=== PATIENT | female | born 1945 | race Hispanic/Latino ===

== ENCOUNTER 2020-01-09 15:51 | Emergency (ER) | payer MEDICARE, OTHER ==
[~2020-01-09] VITALS: Ht 154.9 cm; Wt 63.5 kg
[~2020-01-09 15:51] MED LIST: AMLODIPINE BESY10 MG PO; ASPIRIN325 MG PO; ATORVASTATIN CA20 MG PO; GLIPIZIDE5 MG PO; HYDROCHLOROTHIA25 MG PO; LOSARTAN POTAS100 MG PO; METFORMIN HCL500 MG PO; NIACIN500 M2 PO; OMEPRAZOLE40 MG PO; OSCAL PO
--- NOTE | 2020-01-09 16:41 | Diagnostic Imaging Report ---
Left knee, 3 views INDICATION: ^pain ^[id number] ^[id number] Comparison: None available. Discussion: Multiple views of the right knee are negative for an acute displaced fracture or dislocation. Small suprapatellar joint effusion is noted. A flabella is noted posteriorly. Mild narrowing of the medial compartment and moderate narrowing of the patellofemoral compartment is noted. Enthesophyte is noted at the insertion of the quadriceps tendon. IMPRESSION: 1. Negative for acute displaced fracture or dislocation. 2. Suprapatellar joint effusion is noted. Findings could relate to soft tissue or ligamentous injury. 3. Moderate degenerative changes of the right knee. Signed by: Wali Rodas MD on 01/09/2020 4:38 PM
--- OUTSIDE RECORDS SUMMARY | 2020-01-09 16:49 | XMS REPORT | Continuity of Care Document ---
Author Author [employer] Organization [employer] Address Unknown Phone Unavailable Care Team Providers Care Security Tech Name Role Phone [employer] Unavailable Un available Problems Problem Status Onset Date Classification Date Reported Comments Source SCREENING Active 01/07/2019 [facility] ROUTINE Active 11/08/2017 [facility] R92.8-OTHER ABNORMAL AND INCONCLUSIVE FI Active 09/07/2016 [facility] DIARRHEA Active 10/29/2015 [facility] ACUTE GASTROENTERITITS HYPOKALEMIA, VOLU Active 10/29/2015 [facility] R92.8 OTHER ABNORMAL AND INCONCLUSIVE FI Active 09/23/2015 [facility] OSTEOPOROSIS Active 09/23/2015 [facility] SCREENING MAMMOGRAM Active 07/30/2015 [facility] ABN MAMMO Active 11/26/2014 [facility] Diabetes mellitus (disorder) A ctive [facility] ([facility] Acti ve Problem [facility] Hypertensive disorder, systemic arterial (disorder) Active [facility] Encounter for screening mammogram for ma lignant neoplasm of breast 01/24/2019 [facility] Pain in right shoulder Active Problem 03/08/2018 Elmer Reneeer Trigger finger, right middle finger Active Problem 09/2017 Elmer Reneeer Other chronic pain Active Problem 03/08/2018 Elmer Tucker Type 2 diabetes mellitus without complications Active Diagnosis 10/08/2019 Ronni Anderson MD, P A Screening for cardiovascular disorders Active Diagnosis 10/08/2019 Ronni Anderson MD, P A Hypertensive heart disease without heart failure Active Problem 10/08/2019 Ronni Anderson MD, P A Mixed hyperlipidemia Active Problem 10/08/2019 Ronni Anderson MD, PA Encounter for drug therapy Act paola Diagnosis 1 Elmer Tucker SCREEN MAMMOGRAM NEC Active [facility] ABL MAMMOGRAM NOS Active [facility] ENCNTR SCREEN MAMMOGRAM FOR MALIGNANT NE Active [facility] MAMMOGRAPHIC MICROCALCIFICATION FOUND ON Active [facility] 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 Active [facility] HYPOKALEMIA Active [facility] OTH ABN AND INCONCLUSIVE FINDINGS ON DX Active [facility] Medications Medication Details Route Status Patient Instructions Ordering Provider Order Date Source Potassium Chloride ER 1 tablet with food Orally Active 10 MEQ Orally Once a day Tayyan 12/30/2019 Ronni Anderson MD, PA Leflunomide 1 tablet Orally Active 20 MG Orally Once a day Edis 01/15/2018 Elmer Tucker Hydroxychloroquine Sulfate 1 t ablet with food or milk Orally Active 200 MG Orally twice a day Yous af 01/10/2018 Elmer Tucker Metronidazole Notes: (Same as: Flagyl) Take with food/ avoid alcohol Inactive 10/31/2015 [facility] Protonix Notes: Tablet should not be chewed or crushed. (Same as: Protonix) Inactive 10/30/2015 [facility] Streptococcus pneumoniae serotype 1 caps ular antigen diphtheria [id number] protein conjugate vaccine / Streptococcus pneumoniae serotype 14 capsular antigen diphtheria [id number] protein conjugate vaccine / Streptococcus pneumoniae serotype 18C capsular antigen d Notes: Lightly roll vial (DO NOT SHAKE) before administration. (Same as: Prevnar 13) Inactive 10/30/2015 [facility] Omeprazole 20 mg, Route: PO, D rug form: DRC, Daily, Dosing Weight 68.091, kg, Start date: 10/30/15 9:00:00 CDT, Duration: 30 day, Stop date: 11/28/15 9:00:00 CDT Inactive 10/30/2015 [facility] Losartan Notes: (Same as: Boni kim) Inactive 10/30/2015 [facility] Hydrochlorothiazide 12.5 MG Oral Capsule Notes: (Same as: Microzide) With food. Inactive 10/30/2015 [facility] Amlodipine Notes: (Same as: No rvasc) Inactive 10/30/2015 [facility] atorvastatin Notes: (Same As: Lipitor) Inactive 10/30/2015 [facility] Metformin hydrochloride 1000 MG Oral Tablet Notes: (Same as: Glucophage) Take with meal Inactive 10/30/2015 [facility] Metronidazole 500 MG Oral Tablet [Flagyl] 500 mg = 1 tab, PO, Q8H, X 7 day, # 21 tab, 0 Refill(s) Active 10/30/2015 [facility] Ciprofloxacin 500 MG Oral Tablet [Cipro] 500 mg = 1 tab, PO, Q12H, X 7 day, # 14 tab, 0 Refill(s) Active 10/30/2015 [facility] sodium chloride 0.9% 1000 ml INJ 1,000 mL 1,000 mL, Rate: 125 ml/hr, Infuse over: 8 hr, Route: IV, Dosing Weight 68.091 kg, Total Volume: 1,000, Start date: 10/30/15 7:28:00 CDT, Duration: 30 day, Stop date: 11/29/15 7:27:00 CDT Inactive 10/30/2015 [facility] Ciprofloxacin Notes: May inter fere w/enteral feedings - Take 1 hr before or 2 hrs after antacids, dairy pdt & minerals. On empty stomach. Inactive 10/30/2015 [facility] heparin Notes: porcine heparin Inactive 10/30/2015 [facility] Dextrose 50% Syringe 25 gm, 50 mL, Route: IVP, Drug Form: INJ, Dosing Weight 65, kg, PRN, PRN Blood Glucose Results, Start date: 10/29/15 21:12:00 CDT, Duration: 30 day, Stop date: 11/28/15 21:11:00 CDT No Longer Active 10/30/2015 [facility] Insulin, Aspart, Human Notes: Roll in palms of hands gently; Do not shake vigorously. (Same as: NovoLOG) "single patient use only" WASTE: F/P - Black; E - Municipal Trash Bin Stable for 28 days at room temperature. Expires in days from Date No Longer Active 10/30/2015 [facility] Glucagon 1 mg, Route: IM, Drug form: PDR/INJ, PRN, Dosing Weight 65, kg, PRN Blood Glucose Results, Start date: 10/29/15 21:12:00 CDT, Duration: 30 day, Stop date: 11/28/15 21:11:00 CDT No Longer Active 10/30/2015 [facility] Ondansetron Notes: (Same as: Christal veronica) MEDICATION WASTE Product Size: 4 mg Product Wasted: ___ mg No Longer Active 10/29/2015 [facility] losartan 100 mg oral tablet 10 0 mg = 1 tab, PO, Daily, 0 Refill(s) Active 10/29/2015 [facility] amLODIPine 10 mg oral tablet 1 0 mg = 1 tab, PO, Daily, 0 Refill(s) Active 10/29/2015 [facility] omeprazole 20 mg oral delayed release capsule 20 mg = 1 cap, PO, Daily, 0 Refill(s) Active 10/29/2015 [facility] hydrochlorothiazide 12.5 mg oral tablet 12.5 mg = 1 tab, PO, Daily, 0 Refill(s) No Longer Active 10/29/2015 [facility] Metformin hydrochloride 1000 MG Oral Tablet 1,000 mg = 1 tab, PO, BID, 0 Refill(s) No Longer Active 10/29/2015 [facility] Glipizide 10 MG Oral Tablet 10 mg = 1 tab, PO, Daily, 0 Refill(s) Active 10/29/2015 [facility] atorvastatin 20 mg oral tablet 20 mg = 1 tab, PO, Daily, 0 Refill(s) Active 10/29/2015 [facility] Dextrose 50% Syringe 25 gm, Ro derek: IVP, Dosing Weight 65, kg, ONCE, STAT, Start date: 10/29/15 17:07:00 CDT, Stop date: 10/29/15 17:07:00 CDT Inactive 10/29/2015 [facility] Sodium Chloride 0.154 MEQ/ML Injectable Solution 1,000 mL, 2,000 ml/hr, Infuse Over: 30 minutes, Route: IV, ONCE, Priority: STAT, Dosing Weight 65 kg, Start date: 10/29/15 15:02:00 CDT, Duration: 1 doses or times, Stop date: 10/29/15 15:02:00 CDT Inactive 10/29/2015 [facility] Metronidazole Notes: (Same as: Lissette) Avoid alcohol. Inactive 10/29/2015 [facility] Ciprofloxacin Notes: Do not re frigerate Inactive 10/29/2015 [facility] Tylenol 975 mg, Route: PO, Wallace g form: TAB, ONCE, Dosing Weight 65, kg, Priority: STAT, Start date: 10/29/15 14:21:00 CDT, Stop date: 10/29/15 14:21:00 CDT Inactive 10/29/2015 [facility] Sodium Chloride 0.154 MEQ/ML Injectable Solution 1,000 mL, 1,000 ml/hr, Infuse Over: 1 Hour, Route: IV, ONCE, Priority: STAT, Dosing Weight 65 kg, Start date: 10/29/15 14:21:00 CDT, Duration: 1 doses or times, Stop date: 10/29/15 14:21:00 CDT Inactive 10/29/2015 [facility] Saline Flush 0.9% Notes: (Same as: BD Posiflush) Inactive 10/29/2015 [facility] Hydrochlorothiazide 1 tablet i n the morning Orally Active 25 MG Orally Once a day Monica Anderson MD, PA Aspirin 1 tablet Orally Active 325 MG Orally Once a da y Monica Anderson MD, PA Omeprazole 1 capsule 30 minute s before morning meal Orally Active 20 MG Orally Once a day Monica Anderson MD, PA GlipiZIDE 1 tablet 30 minutes before breakfast Orally Active 10 MG Orally Once a day Monica Anderson MD, PA Amlodipine Besylate 1 tablet Orally Active 10 MG Orally Once a day Monica Anderson MD, PA Atorvastatin Calcium 1 tablet Orally Active 20 MG Orally Once a day Monica Anderson MD, PA Losartan Potassium 1 tablet Orally Active 100 MG Orally Once a day Monica Anderson MD, PA,Elmer Tucker Metformin HCl 1 tablet with a meal Orally Active 500 MG Orally Once a day Monica Anderson MD, PA GlipiZIDE 1 tablet Orally Active 10 MG Orally Once a day [facility] Bruno Tucker Aspirin 1 tablet Orally Active 325 MG Orally Once a y [facility] Bruno Tucker Hydrochlorothiazide 1 tablet i n the morning Orally Active 12.5 MG Orally Once a day [facility] Elmer Tucker Meloxicam 1 tablet with food Orally Active 15 MG Orally Once a day as needed [facility] Elmer Tucker Metformin HCl 1 tablet with me als Orally Active 1000 MG Orally once a day [facility] Elmer Tucker Niacin 1 tablet Orally Active 500 MG Orally Once a y [facility] Bruno Tucker Omeprazole 1 capsule Orally Active 20 MG Orally Once a day [facility] Elmer Tucker Atorvastatin Calcium 1/2 tablet Orally Active 20 MG Orally Once a day [facility] Elmer Tucker Os-Matt 1 tablet with a meal Orally Active 500-600 MG-UNIT Orally Once a day [facility] Elmer Tucker Niacin 1 tablet with food Orally Active 500 MG Orally Once a y Tayyan Ronni Tayyan, MD, PA Potassium Chloride ER 1 tablet with food Orally Active 10 MEQ Orally Once a day Monica Anderson MD, PA Potassium Chloride ER 1 tablet with food Orally Active 10 MEQ Orally Once a day Monica Anderson MD, PA Allergies, Adverse Reactions, Alerts Substance Category Reaction Severity Reaction type Status Date Reported Comments Source N.K.D.A. Adverse Reaction Info Not Available Adverse Reaction 10/03/2019 Ronni Anderson MD, PA No Known Medication Allergies Assertion Drug aller gy [facility] Immunizations Immunization Date Given Site Status Last Updated Comments Source pneumococcal 13-valent vaccine 10/30/2015 Right Deltoid completed Kangethe OPIJoselyn [place],[facility] Results Order Name Results Value Reference Range Date Interpretation Comments Source URINE AND STOOL Occult Bld Stl Negative (10/30/15 8:02 AM) Negative 10/30/2015 [facility] CHEM PANEL Lactic Acid Lvl 1.8 0.5 - 2.2 10/30/2015 [facility] CHEM PANEL Lactic Acid Lvl 2.1 0.5 - 2.2 10/30/2015 [facility] VIRAL - SEROLOGY Influ A Negative (10/29/15 2:19 PM) Negative 10/29/2015 [facility] VIRAL - SEROLOGY Influ B Negative (10/29/15 2:19 PM) Negative 10/29/2015 [facility] CARDIAC ENZYMES Troponin-I <0.02 0.00 - 0.40 10/29/2015 [facility] CARDIAC ENZYMES Total CK 63 12 - 191 10/29/2015 [facility] CARDIAC ENZYMES CK MB <0.5 0.5 - 3.6 10/29/2015 [facility] CARDIAC ENZYMES CK MB Index <0.8 0.0 - 2.5 10/29/2015 [facility] CHEM PANEL Procalcitonin Lvl 0.07 0.00 - 0.10 10/29/2015 [facility] CHEM PANEL Lactic Acid Lvl 2.4 0.5 - 2.2 10/29/2015 [facility] CHEM PANEL eGFR 48 10/29/2015 Result Comment: The eGFR is calculated using the CKD-EPI formula. In most young, healthy individuals the eGFR will be >90 mL/min/1.73m2. The eGFR declines with age. An eGFR of 60-89 may be normal in some populations, particularly the elderly, for whom the CKD-EPI formula has not been extensively validated. Use of the eGFR is not recommended in the following populations:

Individuals with unstable creatinine concentrations, including patients and those with serious co-morbid conditions.

Patients with extremes in muscle mass or diet.

The data above are obtained from the National Kidney Disease Education Program (NKDEP) which additionally recommends that when the eGFR is used in patients with extremes of body mass index for purposes of drug dosing, the eGFR should be multiplied by the estimated BMI. [facility] CHEM PANEL CO2 24 24 - 32 10/29/2015 [facility] CHEM PANEL Total Protein 7.9 6.4 - 8.4 10/29/2015 [facility] CHEM PANEL Chloride Lvl 104 95 - 109 10/29/2015 [facility] CHEM PANEL Potassium Lvl 3.4 3.5 - 5.1 10/29/2015 [facility] CHEM PANEL BUN 24 7 - 22 10/29/2015 [facility] CHEM PANEL Sodium Lvl 137 135 - 145 10/29/2015 [facility] CHEM PANEL Creatinine Lvl 1.15 0.50 - 1.40 10/29/2015 [facility] CHEM PANEL Calcium Lvl 8.5 8.5 - 10.5 10/29/2015 [facility] CHEM PANEL Glucose Lvl 104 70 - 99 10/29/2015 [facility] CHEM PANEL Bili Total 0.6 0.2 - 1.3 10/29/2015 [facility] CHEM PANEL Alk Phos 57 39 - 136 10/29/2015 [facility] CHEM PANEL ALT 17 0 - 65 10/29/2015 [facility] CHEM PANEL Albumin Lvl 3.9 3.5 - 5.0 10/29/2015 [facility] CHEM PANEL AST 11 0 - 37 10/29/2015 [facility] CHEM PANEL AGAP 12.4 10.0 - 20.0 10/29/2015 [facility] CHEM PANEL Globulin 4.0 2.0 - 4.0 10/29/2015 [facility] CHEM PANEL B/C Ratio 21 6 - 25 10/29/2015 [facility] CHEM PANEL A/G Ratio 1.0 0.7 - 1.6 10/29/2015 [facility] HEMATOLOGY PTT 29.1 22.9 - 35.8 10/29/2015 [facility] HEMATOLOGY INR 1.06 0.85 - 1.17 10/29/2015 [facility] HEMATOLOGY PT 14.1 12.0 - 14.7 10/29/2015 [facility] HEMATOLOGY Platelet 159 133 - 450 10/29/[address] [facility] MPV 9.0 7.4 - 10.4 10/29/2015 [facility] HEMATOLOGY MCV 83.4 80.0 - 98.0 10/29/[address] [facility] MCHC 34.6 32.0 - 36.0 10/29/[address] [facility] RDW 13.3 11.5 - 14.5 10/29/[address] [facility] MCH 28.9 27.0 - 31.0 10/29/2015 [facility] HEMATOLOGY Hct 37.5 36.0 - 48.0 10/29/[address] [facility] Hgb 13.0 12.0 - 16.0 10/29/[address] [facility] RBC 4.50 4.20 - 5.40 10/29/[address] [facility] WBC 10.9 3.7 - 10.4 10/29/2015 [facility] HEMATOLOGY Monocytes # 0.5 0.0 - 0.8 10/29/[address] [facility] Lymphocytes # 1.0 1.0 - 5.5 10/29/[address] [facility] Segs-Bands # 9.4 1.5 - 8.1 10/29/2015 [facility] HEMATOLOGY Basophils 0.4 0.0 - 1.0 10/29/2015 [facility] HEMATOLOGY Eosinophils 0.2 0.0 - 4.0 10/29/[address] [facility] Monocytes 4.5 2.0 - 12.0 10/29/[address] [facility] Lymphocytes 9.0 20.0 - 40.0 10/29/[address] [facility] Segs 85.9 45.0 - 75.0 10/29/2015 [facility] URINE AND STOOL UA Color Ltyellow 10/29/2015 [facility] URINE AND STOOL UA Urobilinogen <=1.0 mg/dL 0.1 - 1.0 10/29/2015 [facility] URINE AND STOOL UA Leuk Est Trace *ABN* (10/29/15 2:11 PM) Negative 10/29/2015 [facility] URINE AND STOOL UA WBC 2 0 - 5 10/29/2015 [facility] URINE AND STOOL UA RBC 1 0 - 2 10/29/2015 [facility] URINE AND STOOL UA Bili Negative *NA* (10/29/15 2:11 PM) Negative 10/29/2015 [facility] URINE AND STOOL UA Nitrite Negative (10/29/15 2:11 PM) Negative 10/29/2015 [facility] URINE AND STOOL UA Blood Negative (10/29/15 2:11 PM) Negative 10/29/2015 [facility] URINE AND STOOL UA Sq Epi Occasional /LPF Few /LPF 10/29/2015 [facility] URINE AND STOOL UA Ketones Negative mg/dL Negative mg/dL 10/29/2015 [facility] URINE AND STOOL UA pH 5.0 5.0 - 8.0 10/29/2015 [facility] URINE AND STOOL UA Protein Negative mg/dL Negative mg/dL 10/29/2015 [facility] URINE AND STOOL UA Glucose Negative mg/dL Negative mg/dL 10/29/[address] [facility] [address] URINE AND STOOL UA Turbidity Clear (10/29/15 2:11 PM) Clear 10/29/2015 [facility] URINE AND STOOL UA Spec Grav 1.017 <=1.030 10/29/2015 [facility] Pathology Reports No Data Provided for This Section Diagnostic Reports Report Value Date Source Breast Mammo Scrn MAURICIO w cheli incl CAD MA BILATERAL DIGITAL SCREENING MAMMOGRAM 3D/2D WITH CAD: 01/22/2019 CLINICAL: /Routine. Current study was evaluated with a Computer Aided Detection (CAD) system. COMPARISON:Comparison is made to exams dated: 12/19/2017 mammogram, 09/22/2016 mammogram, 09/08/2015 mammogram, 09/05/2014 mammogram, 09/03/2013 mammogram, and 08/29/2012 mammogram - [facility]. TECHNIQUE: Digital Breast Tomosynthesis was performed and utilized for Interpretation. Media Redefineda Version 1.3 was utilized for computer aided detection. FINDINGS: The tissue of both breasts is heterogeneously dense, which could obscure detection of small masses. There are benign scattered calcifications in both breasts. No significant masses, calcifications, or other findings are seen in either breast. There has been no significant interval change. IMPRESSION: BENIGN RECOMMENDATION:There is no mammographic evidence of malignancy. A 1 year screening mammogram is recommended.(01/23/2020) This exam was interpreted at [id number] for [facility]. Steve rodriguez/maylin:01/22/2019 09:30:29 [employer] Person(s): Aissatou Esparza, [facility] letter sent: BI-RADS 1/2 Mammogram BI-RADS: 2 Benign 01/22/2019 [facility] Breast Mammo Scrn MAURICIO incl CAD MA BILATERAL DIGITAL SCREENING MAMMOGRAM WITH CAD: 12/19/2017 CLINICAL: /Routine. Current study was evaluated with a Computer Aided Detection (CAD) system. COMPARISON:Comparison is made to exams dated: 09/22/2016 mammogram, 09/08/2015 mammogram, 09/05/2014 mammogram, 09/03/2013 mammogram, 08/29/2012 mammogram, and 08/13/2010 mammogram - [facility]. TECHNIQUE: Mammographic views were obtained using digital acquisition. Media Redefineda Version 1.3 was utilized for computer aided detection. FINDINGS: The tissue of both breasts is heterogeneously dense, which could obscure detection of small masses. There are benign scattered calcifications in both breasts. No significant masses, calcifications, or other findings are seen in either breast. There has been no significant interval change. IMPRESSION: BENIGN RECOMMENDATION:There is no mammographic evidence of malignancy. A 1 year screening mammogram is recommended.(12/20/2018) This exam was interpreted at [id number] for [facility]. SUMMARY: As the patient has dense breast parenchyma, this could obscure additional abnormalities. The patient would likely benefit from a supplemental screening test such as bilateral ultrasound. This should be discussed with the patient by the referring physician. Steve rodriguez/maylin:12/19/2017 09:13:22 [employer] Person(s): Olga Galindo, [facility] letter sent: BI-RADS 1/2 Dense Mammogram BI-RADS: 2 Benign 12/19/2017 [facility] Chest 2 views DX Exam: Two-vie w chest x-ray Reason for Exam: - H25.13 Age-related nuclear cataract, bilateral. Preop. Comparison Exam: None Discussion: Cardiomediastinal silhouette is within normal limits. Both hemidiaphragms well visualized. No pulmonary edema or pleural effusions. No focal lung consolidations. Trachea is midline. No acute bony abnormalities. Impression: 1. No acute cardiopulmonary abnormaliti es. 10/11/2016 [facility] [place] Breast Limited Uni US - BREAST LIMITED UNI US/L ULTRASOUND OF LEFT BREAST: 09/22/2016 CLINICAL: Probably benign finding - follow up 2 left breast masses. Comparison is made to exams dated: 10/07/2015 ultrasound, 09/22/2016 mammogram, 09/08/2015 mammogram, 12/01/2014 ultrasound, 09/05/2014 mammogram and 09/03/2013 mammogram - [facility]. Color flow and real-time ultrasound of the left breast were performed on the areas of interest. Wahl scale images of the real-time examination were reviewed. There are two stable probably benign round shaped hypoechoic masses with a circumscribed margin with posterior enhancement left breast at 10 and 12 o'clock that correlate with ultrasound. 10 o'clock mass measures 8 mm and the 12 o'clock mass measures 1 cm. There has been no significant interval change. IMPRESSION: PROBABLY BENIGN - FOLLOW-UP RECOMMENDED The stable left breast masses are probably benign and follow up is recommended. A follow-up bilateral diagnostic mammogram and an ultrasound in 12 months is recommended. The results were reviewed with the patient. The patient will be due for her annual exam at that time. Steve Cali M.D. jt/:09/22/2016 10:54:15 [employer] Person: Sadie Scott, [facility] This exam was dictated and interpreted by [id number] for [facility]. letter sent: Followup Ultrasound BI-RADS: 3 Probably benign 09/22/2016 [facility] Breast Mammo Diag MAURICIO incl CAD MA - BREAST MAMMO DIAG MAURICIO INCL CAD MA BILATERAL DIGITAL DIAGNOSTIC MAMMOGRAM WITH CAD: 09/22/2016 CLINICAL: Probably benign finding - follow up left breast masses. Current study was evaluated with a Computer Aided Detection (CAD) system. Comparison is made to exams dated: 09/08/2015 mammogram, 09/05/2014 mammogram, 09/03/2013 mammogram, 08/29/2012 mammogram, 08/30/2011 mammogram and 08/13/2010 mammogram - [facility]. The tissue of both breasts is heterogeneously dense, which could obscure detection of small masses. There are benign scattered calcifications in both breasts. No significant masses, calcifications, or other findings are seen in either breast. There has been no significant interval change. IMPRESSION: INCOMPLETE: NEEDS ADDITIONAL IMAGING EVALUATION There are no mammographic abnormalities seen in the left breast to correspond with the ultrasound findings at 10 and 12 o'clock, however ultrasound is recommended. The results were reviewed with the patient. SUMMARY: Ultrasound will be performed at this time; please see dedicated separate report. Ultrasound will also reevaluate prior probably benign findings. Steve banegast/penrad:09/22/2016 10:51:10 [employer] Person: Olga Galindo, [facility] This exam was dictated and interpreted by [id number] for [facility]. Mammogram BI-RADS: 0 Indeterminate 09/22/2016 [facility] ED Abdomen/Pelvis IV contrast only CT Patient Name: PALLAVI PUCKETT : 1945; Age: 70 years y/o Female MR: [id number] Study: ED Abdomen/Pelvis IV contrast only CT 10/29/2015 2:07 PM CDT Ordering Physician: Alonso Mooney Comparison: None Clinical Indication: Generalized abdominal pain; diarrhea Multiple computerized axial tomograms of the abdomen and pelvis were obtained after administration of IV contrast and without oral contrast. The lack of oral contrast limits diagnostic detail at the enteric tract and mesentery. 2-D sagittal and coronal reformation reconstruction images were obtained. Patchy reticular and groundglass opacity is noted at the right lower lobe which could represent volume loss and/or pneumonitis. Mild cardiomegaly. Thoracic and lumbar spondylosis are noted associated with degenerative arthropathy of the lower lumbar apophyseal joints. Reticular opacities at both lung bases are noted. Represent scarring or plate atelectasis. Single subcentimeter indeterminate splenic hypodensity is noted. Statistically, this likely represents a cyst but is too small to obtain an accurate attenuation number. Mild generalized diffuse fatty infiltration of the liver. Mild pelviectasis is noted bilaterally due to nonspecific distention of the urinary bladder. Well-circumscribed hypodensity measuring 15 mm is noted arising from the ventral cortex of the inferior pole of the left kidney demonstrating attenuation just greater than fluid (28 Hounsfield units) likely representing a mildly complex cyst. Liver, kidneys, spleen, pancreas and adrenal glands have an otherwise normal CT appearance. There is no adenopathy, abdominal mass or free fluid. No pneumoperitoneum. Moderate sized cystocele. Urinary bladder distention. Uterus surgically absent. The appendix is normal. Fluidic distention of distal and terminal ileum. Fluidic stool is noted at the right colon. Mild constipation at the rectum sigmoid colon, descending colon and splenic flexure. No pelvic mass, adenopathy or free fluid is noted. Degenerative disc disease L5-S1. IMPRESSION: 1. Nonspecific findings at the distal il eum, terminal ileum and right colon which could represent mild enterocolitis. 2. Moderate-sized cystocele associated w ith urinary bladder distention. There is mild renal pelviectasis noted bilaterally due to the urinary bladder distention. 3. Volume loss and/or pneumonitis at the right lower lobe. 4. Mild cardiomegaly. 5. Mildly complex cyst measuring 15 mm a rising from the ventral cortex of the inferior pole of left kidney. Correlation with outpatient nonemergent renal sonography for confirmation is suggested. 6. Mild diffuse fatty infiltration of th e liver. 7. Status post hysterectomy SL: [id number] 10/29/2015 [facility] Bone Density Scan BONE DENSITY : HISTORY: Osteoporosis screening. TECHNIQUE: Dual energy x-ray absorptiometry (DEXA) was done over the lumbar spine and left hip. FINDINGS: The total T-score over the lumbar spine is 0.5, consistent with normal bone density. The previous T-score on 09/03/2013 was -0.3, consistent with normal bone density. There has been a 8.3% increase in BMD since the last exam and a 16.1% increase in BMD since the baseline study on 08/13/2010. The global T-score over the left hip is -0.9, consistent with normal bone density. The previous T-score was -1.3, consistent with Stepanian. There has been a 6.2% increase in BMD since the last exam and a 13.4% increase in BMD since the baseline study. The focal T-score over the left femoral neck is -2.1, consistent with osteopenia. The BMD is 0.622 g/sq cm. The previous T-score over the left femoral neck was -2.8, consistent with osteoporosis, with a previous BMD of 0.545.. IMPRESSION: 1. Normal bone density of the lumbar spi ne. 2. Normal global bone density of the lef t hip. 3. Focal osteopenia of the left femoral neck. FOR YOUR INFORMATION: The World Health Organization has established that OSTEOPOROSIS occurs at -2.5 or more standard deviations (T-score) below peak bone mass (T-score on the Hologic report). OSTEOPENIA occurs at -1.0 to -2.5 standard deviations (T-score) below peak bone mass. [id number] 10/07/2015 [facility] Breast Complete Mauricio US - BREAS T COMPLETE MAURICIO US ULTRASOUND OF BOTH BREASTS AND BOTH AXILLA: 10/07/2015 CLINICAL: Dense. Comparison is made to exams dated: 09/08/2015 mammogram and 12/01/2014 ultrasound - [facility]. Ultrasound was performed over all four quadrants, retroareolar region, and axilla. Color flow and real-time ultrasound of both breasts and both axilla were performed. Wahl scale images of the real-time examination were reviewed. There is a 0.8 cm wider than tall oval nodule with a circumscribed margin in the left breast at 10 o'clock posterior depth 4 cm from the nipple. This oval nodule is anechoic. There also is a stable 1 cm wider than tall oval nodule with a circumscribed margin in the left breast at 12 o'clock middle depth 2 cm from the nipple. This oval nodule is hypoechoic. No abnormalities were seen sonographically in the right breast or either axilla. IMPRESSION: PROBABLY BENIGN - FOLLOW-UP RECOMMENDED The 0.8 cm wider than tall oval nodule in the left breast at 10 o'clock posterior depth is consistent with a fibroadenoma and is probably benign. The stable 1 cm wider than tall oval nodule in the left breast at 12 o'clock middle depth likely represents a fibroadenoma and is probably benign. A follow-up ultrasound in 6 months is recommended to demonstrate stability. Edgar Almaguer M.D. ap/penrad:10/07/2015 11:12:37 [employer]olin Rep[employer] Person: Sadie Scott, [facility] This exam was dictated and interpreted by [id number] for [facility] [place]. letter sent: Followup Ultrasound BI-RADS: 3 Probably benign 10/07/2015 [facility] Digital Mammo Screening Mauricio MA - DIGITAL MAMMO SCREENING MAURICIO MA BILATERAL DIGITAL SCREENING MAMMOGRAM WITH CAD: 09/08/2015 CLINICAL: Other Screening Mammogram. Current study was evaluated with a Computer Aided Detection (CAD) system. Comparison is made to exams dated: 09/05/2014 mammogram, 09/03/2013 mammogram, 08/29/2012 mammogram, 08/30/2011 mammogram, 08/13/2010 mammogram - [facility] and 07/29/2005. The tissue of both breasts is heterogeneously dense, which could obscure detection of small masses. There are benign scattered calcifications in both breasts. No significant masses, calcifications, or other findings are seen in either breast. There has been no significant interval change. IMPRESSION: BENIGN There is no mammographic evidence of malignancy. A 1 year screening mammogram is recommended. SUMMARY: As the patient has dense breast parenchyma, this could obscure additional abnormalities. The patient would likely benefit from a supplemental screening test such as bilateral ultrasound. This should be discussed with the patient by the referring physician. Steve rodriguez/penrad:09/08/2015 09:54:33 [employer]olin Repair Person: Cynthia Patel, [facility] This exam was dictated and interpreted by [id number] for [facility] [place]. letter sent: Normal [facility] Mammogram BI-RADS: 2 Benign 09/08/2015 [facility] Breast Complete Mauricio US - BREAS T COMPLETE MAURICIO US ULTRASOUND OF BOTH BREASTS AND BOTH AXILLA: 12/01/2014 CLINICAL: Densities abnormal mammogram, mammographic nodule/density. Comparison is made to exam dated: 09/05/2014 mammogram - [facility]. Color flow and real-time ultrasound of both breasts and both axilla were performed. Wahl scale images of the real-time examination were reviewed. For both breasts, all 4 quadrants, the retroareolar region and axilla are evaluated in this exam. There is a 9 mm wider than tall oval mass with a circumscribed margin in the left breast at 12 o'clock posterior depth 2 cm from the nipple. This oval mass is hypoechoic with posterior acoustic enhancement. This correlates with mammography findings. Color flow imaging demonstrates that there is no vascularity present. No abnormalities were seen sonographically in the right breast or either axilla. IMPRESSION: PROBABLY BENIGN - FOLLOW-UP RECOMMENDED The 9 mm wider than tall oval mass in the left breast resembles a fibroadenoma and is probably benign. A follow-up in 6 months is recommended. A follow-up left ultrasound in 6 months is recommended to demonstrate stability. Steve rodriguez/:12/01/2014 15:18:25 [employer]olin Repair Person: Sadie Scott, [facility] This exam was dictated and interpreted by [id number] for [facility] [place]. letter sent: Followup Ultrasound BI-RADS: 3 Probably benign 12/01/2014 [facility] Digital Mammo Screening Mauricio MA - DIGITAL MAMMO SCREENING MAURICIO MA BILATERAL DIGITAL SCREENING MAMMOGRAM WITH CAD: 09/05/2014 CLINICAL: Routine. Current study was evaluated with a Computer Aided Detection (CAD) system. Comparison is made to exams dated: 09/03/2013 mammogram, 08/29/2012 mammogram, 08/30/2011 mammogram, 08/13/2010 mammogram - [facility] and 07/29/2005. The tissue of both breasts is heterogeneously dense, which could obscure detection of small masses. Multiple benign appearing masses/densities are noted bilaterally which are not significantly changed in size possibly representing cysts. There are benign scattered calcifications in both breasts. No significant masses, calcifications, or other findings are seen in either breast. There has been no significant interval change. IMPRESSION: BENIGN Multiple benign appearing bilateral masses/densities are not significantly changed possibly representing cysts. Ultrasound can be performed for confirmation and to exclude underlying pathology. There is no mammographic evidence of malignancy. A 1 year screening mammogram is recommended. Steve Cali M.D. jt/:09/08/2014 07:36:31 [employer]olin Repair Person: Radha Hairston, [facility] This exam was dictated and interpreted by [id number] for [facility]. letter sent: Normal [facility] Mammogram BI-RADS: 2 Benign 09/05/2014 [facility] Consultation Notes No Data Provided for This Section Discharge Summaries No Data Provided for This Section History and Physicals No Data Provided for This Section Vital Signs Vital Sign Value Date Comments Source Weight 143 10/03/2019 Ronni Anderson MD, [place] Heart Rate 80 10/03/2019 Ronni Anderson MD, [place] Diastolic (mm Hg) 79 10/03/2019 Ronni Anderson MD, [place] Systolic (mm Hg) 132 10/03/2019 Ronni Anderson MD, [place] Weight 143 04/04/2019 Ronni Anderson MD, [place] Heart Rate 93 04/04/2019 Ronni Anderson MD, [place] Diastolic (mm Hg) 70 04/04/2019 Ronni Anderson MD, [place] Systolic (mm Hg) 141 04/04/2019 Ronni Anderson MD, [place] Weight 143 03/07/2019 Ronni Anderson MD, [place] Heart Rate 84 03/07/2019 Ronni Anderson MD, [place] Diastolic (mm Hg) 62 03/07/2019 Ronni Anderson MD, [place] Systolic (mm Hg) 118 03/07/2019 Ronni Anderson MD, [place] Weight 144 01/04/2018 Elmer Tucker Height 61 1 Elmer Tucker Temperature Oral (F) 97.8 F 01/04/2018 Elmer Tucker Heart Rate 72 01/04/2018 Elmer Tucker Diastolic (mm Hg) 66 01/04/2018 Elmer Tucker Systolic (mm Hg) 120 01/04/2018 Elmer Tucker Weight 145 12/21/2017 Elmer Tucker Height 61 0 12/21/2017 Elmer Tucker Temperature Oral (F) 97.6 F 12/21/2017 Elmer Tucker Heart Rate 84 12/21/2017 Elmer Tucker Diastolic (mm Hg) 64 12/21/2017 Elmer Tucker Systolic (mm Hg) 130 12/21/2017 Elmer Tucker Weight 146 03/29/2017 Elmer Tucker Height 61 1 05/30/2016 Elmer Tucker Temperature Oral (F) 98.0 F 03/29/2017 Elmer Tucker Heart Rate 72 03/29/2017 Elmer Tucker Diastolic (mm Hg) 76 03/29/2017 Elmer Tucker Systolic (mm Hg) 120 03/29/2017 Elmer Tucker Heart Rate 90 10/30/2015 [facility] Respitory Rate 18 10/30/2015 [facility] Systolic (mm Hg) 118 10/30/2015 [facility] Diastolic (mm Hg) 69 10/30/2015 [facility] Temperature Oral (F) 98.8 F 10/30/2015 [facility] Respitory Rate 18 10/30/2015 [facility] Systolic (mm Hg) 115 10/30/2015 [facility] Diastolic (mm Hg) 68 10/30/2015 [facility] Heart Rate 101 10/30/2015 [facility] Temperature Oral (F) 99.6 F 10/30/2015 [facility] Temperature Oral (F) 98.7 F 10/30/2015 [facility] Systolic (mm Hg) 106 10/30/2015 [facility] Diastolic (mm Hg) 56 10/30/2015 [facility] Heart Rate 116 10/30/2015 [facility] Respitory Rate 18 10/30/2015 [facility] Weight 68.091 10/30/2015 [facility] Height 154.94 cm 10/30/2015 [facility] BMI Calculated 28.36 10/30/2015 [facility] Weight 65 0 10/29/2015 [facility] Height 154.94 cm 10/29/2015 [facility] BMI Calculated 27.08 10/29/2015 [facility] Encounters Location Location Details Encounter Type Encounter Number Reason For Visit Attending Provider ADM Date DC Date Status Source [facility] Outpatient [id number] Abraham Rivera 09/05/2014 09/06/2014 [facility] Outpatient [id number] Abraham Rivera 12/01/2014 12/02/2014 [facility] Outpatient [id number] Abraham Rivera 09/08/2015 09/09/2015 [facility] Outpatient [id number] Abraham Rivera 10/07/2015 10/08/2015 [facility] Inpatient [id number] Rashad Simon 10/29/2015 10/30/2015 [facility] Outpatient [id number] Abraham Rivera 09/22/2016 09/23/2016 [facility] [place] [facility] [id number] Abraham Rivera 10/11/2016 10/12/2016 [facility] [place] [facility] [place] Out[facility] Di[facility] [id number] Abraham Rivera 11/08/2017 11/08/2017 [facility] [place] [facility] Outpatient [id number] Abraham Rivera 12/19/2017 12/20/2017 [facility] Outpatient [id number] Abraham Rivera 01/22/2019 01/23/2019 [facility] Procedures Procedure Code Date Perfomer Comments Source Hysterectomy [id number] [facility] [place],[facility] Tubal ligation [id number] [facility] Assessment and Plan Assessment and Plan Date Source Extracted from:Title: Clinical Document Author: Elia Luna MD Date: 10/30/15 PATIENT NAME:PALLAVI PUCKETT ATTENDING PHYSICIAN: ELIJAH HIGGINS DATE OF ADMISSION:10/29/2015 * * * REASON FOR ADMISSION: VOLUME DEPLETION, HYPOKALEMIA, DIARRHEA HISTORY OF PRESENT ILLNESS: 70yo woman presents with 2 month of watery diarrhea. She denies any recent travel history, denies drinking from unpurified water source, sick contacts, new medication or diet. She denies abdominal cramping associated with diarrhea and instead describes urgency as a primary source of discomfort. she denies hematochezia, melena, excessive flatulence, nausea or vomiting. She was prompted to come into the hospital today bc she felt feverish at home and reports temp of 103 and 102. she is afraid of taking trips or leaving the house for fear of fecal incontinence. PAST MEDICAL HISTORY: DM, HTN, HLD ALLERGIES: Allergies (1) Active Reaction NKDA None documented HOME MEDICATIONS:see MAR SOCIAL HISTORY: no alcohol, tobacco or illicit drug use REVIEW OF SYSTEMS: CONSTITUTIONAL: see hpi. +weakness worsening over past week HEENT: Eyes: No visual loss, blurred vision, double vision, sclera icterus, hearing loss, sneezing, congestion, runny nose or sore throat. SKIN: No rash or itching. CARDIOVASCULAR: No chest pain/chest discomfort, or palpitations. No PND or orthorpnea. RESPIRATORY: No shortness of breath, cough or increase sputum production GASTROINTESTINAL: + anorexia, diarrhea. No nausea, vomiting, or constipation. No abdominal pain or BPR GENITOURINARY: No dysuria, hematuria, discharge, or urinary frequency. NEUROLOGICAL: No headache, dizziness, syncope, paralysis, ataxia, numbness or tingling. No change in bowel or bladder control. MUSCULOSKELETAL: No muscle, back pain, joint pain or stiffness. HEMATOLOGIC: No anemia, bleeding or bruising. LYMPHATICS: No enlarged nodes. ENDOCRINOLOGIC: No reports of sweating, cold or heat intolerance. No polyuria or polydipsia. PHYSICAL EXAMINATION: Vitals Tmp(F) Pulse BP RR SpO2 FIO2 10/28 22:34 ---- --- ----- - - 97 --- 10/28 22:32 ---- 103 ----- - - --- --- 10/28 22:00 ---- 90 132/54 1 8 96 --- 10/28 21:15 98.2 88 124/59 1 8 96 --- 10/28 19:28 98.2 86 120/54 1 8 96 --- 24 Hr Tmax: 100.1F (37.83c) at 10/28 13: 34 Vital Signs are the last 5 in the past 48 hours. I&O Record In Out Bal 10/28 24hr Tot 1999 0 10/27 24hr Tot 0 0 0 GENERAL: in no apparent distress at this time. HEENT: EOMI NECK: supple, no jugular venous distention, no masses, no bruits CARDIOVASCULAR: regular rate and rhythm, s1 and s2 present, no murmurs, rubs or gallops LUNGS: clear to auscultation bilaterally, no wheezes, rales or rhonchi. GASTROINTESTINAL: soft, non-tender, non-distended positive bowel sounds in all four quadrants, no fluid wave appreciated EXTREMITIES: no clubbing, cyanosis or edema, pulses 2+ bilaterally and symmetric. NEUROLOGICAL: intact, no gross deficits noted SKIN: warm, no erythema, ecchymoses, purpura or petechiae, no jaundice, no diaphoresis LABORATORY DATA: Labs (Last four charted values) WBC H 10.9 (OCT 28) Hgb 13.0 (OCT 28) Hct 37.5 (OCT 28) Plt 159 (OCT 28) Na 137 (OCT 28) K L 3.4 (OCT 28) CO2 24 (OCT 28) Cl 104 (OCT 28) Cr 1.15 (OCT 28) BUN H 24 (OCT 28) Glucose Random H 104 (OCT 28) Ca 8.5 (OCT 28) PT 14.1 (OCT 28) INR 1.06 (OCT 28) PTT 29.1 (OCT 28) Troponin <0.02 (OCT 28) CK MB <0.5 (OCT 28) Total CK 63 (OCT 28) Radiology: Patient Name: PALLAVI PUCKETT : 1945; Age: 70 years y/o Female MR: [id number] Study: ED Abdomen/Pelvis IV contrast only CT 10/29/2015 2:07 PM CDT Ordering Physician: Alonso Mooney Comparison: None Clinical Indication: Generalized abdominal pain; diarrhea Multiple computerized axial tomograms of the abdomen and pelvis were obtained after administration of IV contrast and without oral contrast. The lack of oral contrast limits diagnostic detail at the enteric tract and mesentery. 2-D sagittal and coronal reformation reconstruction images were obtained. Patchy reticular and groundglass opacity is noted at the right lower lobe which could represent volume loss and/or pneumonitis. Mild cardiomegaly. Thoracic and lumbar spondylosis are noted associated with degenerative arthropathy of the lower lumbar apophyseal joints. Reticular opacities at both lung bases are noted. Represent scarring or plate atelectasis. Single subcentimeter indeterminate splenic hypodensity is noted. Statistically, this likely represents a cyst but is too small to obtain an accurate attenuation number. Mild generalized diffuse fatty infiltration of the liver. Mild pelviectasis is noted bilaterally due to nonspecific distention of the urinary bladder. Well-circumscribed hypodensity measuring 15 mm is noted arising from the ventral cortex of the inferior pole of the left kidney demonstrating attenuation just greater than fluid (28 Hounsfield units) likely representing a mildly complex cyst. Liver, kidneys, spleen, pancreas and adrenal glands have an otherwise normal CT appearance. There is no adenopathy, abdominal mass or free fluid. No pneumoperitoneum. Moderate sized cystocele. Urinary bladder distention. Uterus surgically absent. The appendix is normal. Fluidic distention of distal and terminal ileum. Fluidic stool is noted at the right colon. Mild constipation at the rectum sigmoid colon, descending colon and splenic flexure. No pelvic mass, adenopathy or free fluid is noted. Degenerative disc disease L5-S1. IMPRESSION: 1. Nonspecific findings at the distal il eum, terminal ileum and right colon which could represent mild enterocolitis. 2. Moderate-sized cystocele associated w ith urinary bladder distention. There is mild renal pelviectasis noted bilaterally due to the urinary bladder distention. 3. Volume loss and/or pneumonitis at the right lower lobe. 4. Mild cardiomegaly. 5. Mildly complex cyst measuring 15 mm a rising from the ventral cortex of the inferior pole of left kidney. Correlation with outpatient nonemergent renal sonography for confirmation is suggested. 6. Mild diffuse fatty infiltration of th e liver. 7. Status post hysterectomy Assessment&Plan: 70 year old woman with 2 months of watery diarrhea presenting with fatigue, hypokalemia and volume depletion. 1. DIARRHEA 2. LEUKOCYTOSIS 3. RLL infiltrate 4. FEVER 5. hypokalemia 1. send stool for O/P, consult GI for en terocolititis and recommendations. send CDiff toxin. 2. leukocytosis may be secondary to lung process, colitis etc. 3. clarify pulmonary picture. 4. fever has been absent since earlier i n the ED. tmax here has been 100.1 5. mild hypokalemia. will recheck bmp in morning. 10/30/2015 [facility] Plan of Care No Data Provided for This Section Social History Social History Date Source Social History TypeResponse Substance Abuse Use: None. IV drug use: No. Drug use interferes with work/home: No. Ready to change: No. Household substance abuse concerns: No. Alcohol Current, Type Wine. Frequency: 1-2 times per month. Previous treatment: None. Alcohol use interferes with work or home: No. Drinks more than intended: No. Others hurt by drinking: No. Ready to change: No. Household alcohol concerns: No. Smoking Status Never smoker; Ready to change: No; Concerns about tobacco use in household: No; Exposure to Tobacco Smoke None; Cigarette Smoking Last 365 Days No; Reg Smoking Cessation Counseling No entered on: 10/29/15 10/30/2015 ROSA Dean Social History TypeResponse Alcohol Current, Type Wine. Frequency: 1-2 times per month. Previous treatment: None. Alcohol use interferes with work or home: No. Drinks more than intended: No. Others hurt by drinking: No. Ready to change: No. Household alcohol concerns: No. Substance Abuse Use: None. IV drug use: No. Drug use interferes with work/home: No. Ready to change: No. Household substance abuse concerns: No. Smoking Status Never smoker; Ready to change: No; Concerns about tobacco use in household: No; Exposure to Tobacco Smoke None; Cigarette Smoking Last 365 Days No; Reg Smoking Cessation Counseling No entered on: 10/29/15 10/30/2015 [facility] Family History No Data Provided for This Section Advance Directives No Data Provided for This Section Functional Status No Data Provided for This Section
--- OUTSIDE RECORDS SUMMARY | 2020-01-09 16:49 | XMS REPORT | Continuity of Care Document ---
Author Author [facility] t Organization [facility] Address [address] [place] [address] Phone Unavailable Care Team Providers Care Early Childhood Services Coordinator Name Role Phone MARKMERYLJOSÉ KIRK Attphys Unavailable Anu Rivera Attphys Rashad Montes Attphys Rashad Montes Admphys Problems Condition Name Condition Details Condition Category Status Onset Date Resolution Date Last Treatment Date Treating Clinician Comments Source SCREENING SCRE ENING Active 01/07/2019 [facility] Diagnosis Active 2019-01-07 00:00:00 2019-01-22 09:12:00 Graciela Mejia ROUTINE ROUT INE Active 11/08/2017 [facility] Diagnosis Active 2017-11-08 00:00:00 2017-12-19 08:46:00 [facility] R92.8-OTHER ABNORMAL AND INCONCLUSIVE FI R92.8-OTHER ABNORMAL AND INCONCLUSIVE FI Active 09/07/2016 [facility] Diagnosis A ctive 2016-09-07 00:00:00 2016-09-22 09:38:00 M cheyenne Mejia DIARRHEA DIAR PAWAN Active 10/29/2015 [facility] Diagnosis Active 2015-10-29 00:00:00 2015-10-29 14:20:00 [facility] ACUTE GASTROENTERITITS HYPOKALEMIA, VOLU ACUTE GASTROENTERITITS HYPOKALEMIA, VOLU Active 10/29/2015 [facility] Diagnosis Active 2015-10-29 00:00:00 2015-11-10 12:19:00 [facility] R92.8 OTHER ABNORMAL AND INCONCLUSIVE FI R92.8 OTHER ABNORMAL AND INCONCLUSIVE FI Active 09/23/2015 [facility] Diagnosis A ctive 2015-09-23 00:00:00 2015-10-07 10:30:00 M cheyenne Mejia OSTEOPOROSIS OSTE OPOROSIS Active 09/23/2015 [facility] Diagnosis Active 2015-09-23 00:00:00 2015-11-08 15:34:00 [facility] SCREENING MAMMOGRAM SCRE ENING MAMMOGRAM Active 07/30/2015 [facility] Diagnosis Active 2015-07-30 00:00:00 2015-09-08 09:15:00 Graciela [place] ABN MAMMO ABN MAMMO Active 11/26/2014 [facility] Diagnosis Active 2014-11-26 00:00:00 2014-12-01 14:50:00 [facility] Encounter for screening mammogram for malignant neopla sm of breast Encounter for screening mammogram for malignant neoplasm of breast 01/24/2019 [facility] Problem 2019-01-24 23:03:29 [facility] Diabetes mellitus (disorder) D iabetes mellitus (disorder) Active Problem 01/24/2019 [facility] Active 2019-01-24 23:03:29 [facility] Hyperlipidemia (disorder) Hype rlipidemia (disorder) Active Problem 01/24/2019 [facility] Active 2019-01-24 23:03:29 [facility] Hypertensive disorder, systemic arterial (disorder) Hypertensive disorder, systemic arterial (disorder) Active Problem 01/24/2019 [facility] Problem Active 2019-01-24 23:03:29 [facility] Pain in right shoulder Pain in right shoulder Active Problem 03/08/2018 Elmer Tucker Problem Active 2018-03-08 03 :47:30 [facility] Trigger finger, right middle finger Trigger finger, right middle finger Active Problem 03/08/2018 Elmer Tucker Problem Active 2018-03-08 03:47:30 [facility] Other chronic pain Othe r chronic pain Active Problem 03/08/2018 Elmer Tucker Problem Active 2018-03-08 03:47:30 [facility] Type 2 diabetes mellitus without complications Type 2 diabetes mellitus without complications Active Diagnosis 10/08/2019 Ronni Anderson MD, [place] Diagnosis Active 2019-10-08 04:10:15 [facility] Screening for cardiovascular disorders Screening for cardiovascular disorders Active Diagnosis 10/08/2019 Ronni Anderson MD, PA Diagnosis Active 2019-10-08 04:10:15 [facility] Hypertensive heart disease without heart failure Hypertensive heart disease without heart failure Active Problem 10/08/2019 Ronni Anderson MD, [place] Problem Active 2019-10-08 04:10:15 [facility] Mixed hyperlipidemia Mixe d hyperlipidemia Active Problem 10/08/2019 Ronni Anderson MD, [place] Problem Active 2019-10-08 04 :10:15 [facility] Encounter for drug therapy Enc ounter for drug therapy Active Diagnosis 01/06/2018 Elmer Reneeer Diagnosis Active 2018-01-06 02:47:48 [facility] SCREEN MAMMOGRAM NEC SCRE EN MAMMOGRAM NEC Active [facility] Diagnosis Active 2014-09-05 09:52:00 La morial [place] ABL MAMMOGRAM NOS ABL MAMMOGRAM NOS Active [facility] Diagnosis Active 2014-12-01 14:50:00 [facility] ENCNTR SCREEN MAMMOGRAM FOR MALIGNANT NE ENCNTR SCREEN MAMMOGRAM FOR MALIGNANT NE Active [facility] Diagnosis Active 2019-01-22 09:12:00 [facility] MAMMOGRAPHIC MICROCALCIFICATION FOUND ON MAMMOGRAPHIC MICROCALCIFICATION FOUND ON Active [facility] Diagnosis Active 2015-10-07 10:30:00 [facility] 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 Active [facility] Diagnosis Active 2017-12-19 08:45:00 [facility] HYPOKALEMIA HYPO KALEMIA Active [facility] Diagnosis Active 2015-11-10 12:19:00 [facility] [place] OTH ABN AND INCONCLUSIVE FINDINGS ON DX OTH ABN AND INCONCLUSIVE FINDINGS ON DX Active [facility] Diagnosis Active 2016-09-22 09:38:00 [facility] Allergies, Adverse Reactions, Alerts Allergy Name Allergy Type Status Severity Reaction(s) Onset Date Inacti ve Date Treating Clinician Comments Source N.K.D.A. N.K.D.A. Active Info Not Available 2019-10-03 00:00:00 [facility] No Known Medication Allergies No Known Medication Allergies Active [facility] Social History Social Habit Start Date Stop Date Quantity Comments Source Social History 2015-10-30 03:38:04 2015-10-30 03:38:04 [facility] Medications Ordered Medication Name Filled Medication Name Start Date Stop Da te Current Medication? Ordering Clinician Indication Dosage Frequency Signature (SIG) Comments Components Source Potassium Chloride ER 2019-12-30 00:00:00 Yes Ronni Guptaw an Tayyan 1 tablet with food [facility] Hydrochlorothiazide 2019-10-08 04:10:15 Yes Ronni Marwan Tayyan 1 tablet in the morning [facility] Aspirin 2019-10-08 04:10:15 Yes Ronni Brown Tayyan 1 tablet [facility] Omeprazole 2019-10-08 04:10:15 Yes Ronni Kellyyan 1 capsule 30 minutes before morning meal [facility] Her negro GlipiZIDE 2019-10-08 04:10:15 Yes Ronni Kellyyan 1 tablet 30 minutes before breakfast [facility] Amlodipine Besylate 2019-10-08 04:10:15 Yes Ronni Brown Tayyan 1 tablet [facility] Atorvastatin Calcium 2019-10-08 04:10:15 Yes Ronni kaur Tayyan 1 tablet [facility] Losartan Potassium 2019-10-08 04:10:15 Yes Ronni Brown Tayyan 1 tablet [facility] Metformin HCl 2019-10-08 04:10:15 Yes Ronni Eason n 1 tablet with a meal [facility] Potassium Chloride ER 2019-03-22 05:10:40 Yes Ronni tavarez Tayyan 1 tablet with food [facility] Niacin 2019-03-12 05:10:12 Yes Ronni Kellyyan 1 tablet with food [facility] Potassium Chloride ER 2019-03-12 05:10:12 Yes Ronni tavarez Tayyan 1 tablet with food [facility] Leflunomide 2018-01-15 00:00:00 Yes Wajeeha Edis 1 tablet [facility] Hydroxychloroquine Sulfate 2018-01-10 00:00:00 Yes Wajee marte Edis 1 tablet with food or milk [facility] GlipiZIDE 2018-01-06 02:47:48 Yes Wajeeha Edis 1 tablet [facility] Aspirin 2018-01-06 02:47:48 Yes Wajeeha Edis 1 tablet [facility] Hydrochlorothiazide 2018-01-06 02:47:48 Yes Wajeeha Yous af 1 tablet in the morning [facility] Meloxicam 2018-01-06 02:47:48 Yes Wajeeha Edis 1 tablet with food [facility] Metformin HCl 2018-01-06 02:47:48 Yes Wajeeha Edis 1 tablet with meals [facility] Niacin 2018-01-06 02:47:48 Yes Wajeeha Edis 1 t ablet [facility] Omeprazole 2018-01-06 02:47:48 Yes Wajeeha Edis 1 capsule Graciela Mejia Atorvastatin Calcium 2018-01-06 02:47:48 Yes Chinyessigretchenbenny You saf 1/2 tablet Graciela Mejia Os-Matt 2018-01-06 02:47:48 Yes Wajeeha Edis 1 tablet with a meal Graciela Mejia Metronidazole 2015-10-31 04:00:00 No Notes: (Same as: Flagyl) Take with food/ avoid alcohol Graciela Foy n Protonix 2015-10-30 21:30:00 No Notes: Tablet should not be chewed or crushed. (Same as: Protonix) Graciela Mejia Streptococcus pneumoniae serotype 1 caps ular antigen diphtheria [id number] protein conjugate vaccine / Streptococcus pneumoniae serotype 14 capsular antigen diphtheria [id number] protein conjugate vaccine / Streptococcus pneumoniae serotype 18C capsular antigen d 2015-10-30 14:00:00 No Notes: Lightly roll vial (DO NOT SHAKE) before administration. (Same as: Prevnar 13) [facility] Omeprazole 2015-10-30 14:00:00 No 20 mg, Route: PO, Drug form: DRC, Daily, Dosing Weight 68.091, kg, Start date: 10/30/15 9:00:00 CDT, Duration: 30 day, Stop date: 11/28/15 9:00:00 CDT [facility] Losartan 2015-10-30 14:00:00 No Notes: (Arian galindo as: Dulce) [facility] Hydrochlorothiazide 12.5 MG Oral Capsule 2015-10-30 14:00:00 No Notes: (Same as: Microzide) With food. [facility] Amlodipine 2015-10-30 14:00:00 No Notes: (S kimber as: Norvasc) [facility] atorvastatin 2015-10-30 14:00:00 No Notes: (Same As: Lipitor) [facility] Metformin hydrochloride 1000 MG Oral Tablet 2015-10-30 13:00:00 No Notes: (Same as: Glucophage) Take with meal [facility] Metronidazole 500 MG Oral Tablet [Flagyl] 2015-10-30 12:30:00 Yes 500 mg = 1 tab, PO, Q8H, X 7 day, # 21 tab, 0 Refill(s) [facility] Ciprofloxacin 500 MG Oral Tablet [Cipro] 2015-10-30 12:30:00 Yes 500 mg = 1 tab, PO, Q12H, X 7 day, # 14 tab, 0 Refill(s) [facility] sodium chloride 0.9% 1000 ml INJ 1,000 mL 2015-10-30 12:28:00 No 1,000 mL, Rate: 125 ml/hr, Infuse over: 8 hr, Route: IV, Dosing Weight 68.091 kg, Total Volume: 1,000, Start date: 10/30/15 7:28:00 CDT, Duration: 30 day, Stop date: 11/29/15 7:27:00 CDT [facility] Ciprofloxacin 2015-10-30 11:00:00 No Notes: May interfere w/enteral feedings - Take 1 hr before or 2 hrs after antacids, dairy pdt & minerals. On empty stomach. [facility] heparin 2015-10-30 05:00:00 No Notes: porci ne heparin [facility] Dextrose 50% Syringe 2015-10-30 02:12:00 No 25 gm, 50 mL, Route: IVP, Drug Form: INJ, Dosing Weight 65, kg, PRN, PRN Blood Glucose Results, Start date: 10/29/15 21:12:00 CDT, Duration: 30 day, Stop date: 11/28/15 21:11:00 CDT [facility] Insulin, Aspart, Human 2015-10-30 02:12:00 No Notes: Roll in palms of hands gently; Do not shake vigorously. (Same as: NovoLOG) "single patient use only" WASTE: F/P - Black; E - Municipal Trash Bin Stable for 28 days at room temperature. Expires in days from Date [facility] Glucagon 2015-10-30 02:12:00 No 1 mg, Route: IM, Drug form: PDR/INJ, PRN, Dosing Weight 65, kg, PRN Blood Glucose Results, Start date: 10/29/15 21:12:00 CDT, Duration: 30 day, Stop date: 11/28/15 21:11:00 CDT [facility] Ondansetron 2015-10-29 23:16:00 No Notes: (Same as: Joshua) MEDICATION WASTE Product Size: 4 mg Product Wasted: ___ mg Graciela [place] losartan 100 mg oral tablet 2015-10-29 22:35:00 Yes 100 mg = 1 tab, PO, Daily, 0 Refill(s) Graciela Cardosoann amLODIPine 10 mg oral tablet 2015-10-29 22:35:00 Yes 10 mg = 1 tab, PO, Daily, 0 Refill(s) Graciela Mejia omeprazole 20 mg oral delayed release capsule 2015-10-29 22:35:0 0 Yes 20 mg = 1 cap, PO, Daily, 0 Refill(s) Graciela Mejia hydrochlorothiazide 12.5 mg oral tablet 2015-10-29 22:35:00 No 12.5 mg = 1 tab, PO, Daily, 0 Refill(s) Reinaldo mendoza [address] Metformin hydrochloride 1000 MG Oral Tablet 2015-10-29 22:35:00 No 1,000 mg = 1 tab, PO, BID, 0 Refill(s) Bonnie cheyenne Roberto Glipizide 10 MG Oral Tablet 2015-10-29 22:35:00 Yes 10 mg = 1 tab, PO, Daily, 0 Refill(s) Graciela [facility] atorvastatin 20 mg oral tablet 2015-10-29 22:35:00 Yes 20 mg = 1 tab, PO, Daily, 0 Refill(s) Graciela Her negro Dextrose 50% Syringe 2015-10-29 22:07:00 No 25 gm, Route: IVP, Dosing Weight 65, kg, ONCE, STAT, Start date: 10/29/15 17:07:00 CDT, Stop date: 10/29/15 17:07:00 CDT [facility] Sodium Chloride 0.154 MEQ/ML Injectable Solution 2015-10-29 20:0 2:00 No 1,000 mL, 2,000 ml/hr, Infus e Over: 30 minutes, Route: IV, ONCE, Priority: STAT, Dosing Weight 65 kg, Start date: 10/29/15 15:02:00 CDT, Duration: 1 doses or times, Stop date: 10/29/15 15:02:00 CDT [facility] Metronidazole 2015-10-29 19:55:00 No Notes: (Same as: Lissette) Avoid alcohol. Graciela Mejia Ciprofloxacin 2015-10-29 19:55:00 No Notes: Do not refrigerate Graciela Mejia Tylenol 2015-10-29 19:21:00 No 975 mg, Route: PO, Drug form: TAB, ONCE, Dosing Weight 65, kg, Priority: STAT, Start date: 10/29/15 14:21:00 CDT, Stop date: 10/29/15 14:21:00 CDT Christian Mejia Sodium Chloride 0.154 MEQ/ML Injectable Solution 2015-10-29 19:2 1:00 No 1,000 mL, 1,000 ml/hr, Infus e Over: 1 Hour, Route: IV, ONCE, Priority: STAT, Dosing Weight 65 kg, Start date: 10/29/15 14:21:00 CDT, Duration: 1 doses or times, Stop date: 10/29/15 14:21:00 CDT [facility] [place] Saline Flush 0.9% 2015-10-29 19:07:00 No Notes: (Same as: BD Posiflush) [facility] Vital Signs Vital Name Observation Time Observation Value Comments Source Weight 2019-10-03 18:45:00 [facility] [place] Heart Rate 2019-10-03 18:45:00 [facility] [place] Diastolic (mm Hg) 2019-10-03 18:45:00 Mem o[facility] [place] Systolic (mm Hg) 2019-10-03 18:45:00 Farhat Cardosoann Weight 2019-04-04 20:15:00 [facility] [place] Heart Rate 2019-04-04 20:15:00 [facility] [place] Diastolic (mm Hg) 2019-04-04 20:15:00 Mem [facility] Systolic (mm Hg) 2019-04-04 20:15:00 Farhat cruz [facility] Weight 2019-03-07 19:00:00 [facility] Heart Rate 2019-03-07 19:00:00 [facility] Diastolic (mm Hg) 2019-03-07 19:00:00 [facility] Systolic (mm Hg) 2019-03-07 19:00:00 Farhat cruz [place] Weight 2018-01-04 15:15:00 [facility] [place] Height 2018-01-04 15:15:00 [facility] [place] Temperature Oral (F) 2018-01-04 15:15:00 97.8 F [facility] [place] Heart Rate 2018-01-04 15:15:00 [facility] Diastolic (mm Hg) 2018-01-04 15:15:00 Mem [facility] [place] Systolic (mm Hg) 2018-01-04 15:15:00 Farhat rial [place] Weight 2017-12-21 14:00:00 [facility] [place] Height 2017-12-21 14:00:00 [facility] [place] Temperature Oral (F) 2017-12-21 14:00:00 97.6 F [facility] [place] Heart Rate 2017-12-21 14:00:00 [facility] Diastolic (mm Hg) 2017-12-21 14:00:00 Mem [facility] [place] Systolic (mm Hg) 2017-12-21 14:00:00 Farhat rial [place] Weight 2017-03-29 15:30:00 [facility] Height 2017-03-29 15:30:00 [facility] [place] Temperature Oral (F) 2017-03-29 15:30:00 98.0 F [facility] Heart Rate 2017-03-29 15:30:00 [facility] [place] Diastolic (mm Hg) 2017-03-29 15:30:00 Mem [facility] [place] Systolic (mm Hg) 2017-03-29 15:30:00 Farhat rial [place] Heart Rate 2015-10-30 17:00:00 [facility] Respitory Rate 2015-10-30 17:00:00 [facility] Systolic (mm Hg) 2015-10-30 17:00:00 Farhat rial Roberto Diastolic (mm Hg) 2015-10-30 17:00:00 [facility] Temperature Oral (F) 2015-10-30 17:00:00 98.8 F [facility] Respitory Rate 2015-10-30 13:00:00 [facility] Systolic (mm Hg) 2015-10-30 13:00:00 Farhat rial [place] Diastolic (mm Hg) 2015-10-30 13:00:00 [facility] [place] Heart Rate 2015-10-30 13:00:00 [facility] Temperature Oral (F) 2015-10-30 13:00:00 99.6 F [facility] Temperature Oral (F) 2015-10-30 09:00:00 98.7 F [facility] [place] Systolic (mm Hg) 2015-10-30 09:00:00 Farhat rial [facility] Diastolic (mm Hg) 2015-10-30 09:00:00 [facility] Heart Rate 2015-10-30 09:00:00 [facility] [place] Respitory Rate 2015-10-30 09:00:00 [facility] Weight 2015-10-30 03:31:00 [facility] Height 2015-10-30 03:31:00 154.94 cm [facility] [place] BMI Calculated 2015-10-30 03:31:00 [facility] Weight 2015-10-29 18:34:00 [facility] [place] Height 2015-10-29 18:34:00 154.94 cm [facility] BMI Calculated 2015-10-29 18:34:00 [facility] Procedures Procedure Date / Time Performed Performing Clinician Sourc e Hysterectomy [facility] Tubal ligation [facility] Encounters Start Date/Time End Date/Time En[facility] Source 2019-10-03 13:45:00 2019-10-03 13:45:00 [place] [id number] [employer] 2019-04-04 14:15:00 2019-04-04 14:15:00 Outpatient [place] [id number] [employer] 2019-03-21 15:45:00 2019-03-21 15:45:00 Outpatient [place]ni [place] [id number] [employer] 2019-03-21 15:00:00 2019-03-21 15:00:00 [place] [id number] [employer] 2019-03-07 13:00:00 2019-03-07 13:00:00 Outpatient Ronni [place] Md [place] [id number] [employer] 2019-01-22 09:02:00 2019-01-22 23:59:00 Outpatient Abraham Rivera MHSE MHSE [id number] 2019-01-22 09:02:00 2019-01-22 09:02:00 Outpatient MHSE MED [id number] 2018-03-07 16:00:00 2018-03-07 16:00:00 Outpatient Eliu Tucker MD [place] [id number] Elmer Tucker MD 2018-01-15 13:01:00 2018-01-15 13:01:00 Outpatient Eliu NELSON [id number] Elmer Tucker MD 2018-01-10 15:26:00 2018-01-10 15:26:00 Outpatient Eliu Tucker MD [place] [id number] Elmer Tucker MD 2018-01-04 11:54:00 2018-01-04 11:54:00 Outpatient Eliu NELSON [id number] Elmer Tucker MD 2018-01-04 10:15:00 2018-01-04 10:15:00 Outpatient Eliu NELSON [id number] Elmer Tucker MD 2017-12-21 09:00:00 2017-12-21 09:00:00 Outpatient Eliu Tucker MD [place] [id number] Elmer Tucker MD 2017-12-19 08:45:00 2017-12-19 23:59:00 Outpatient Abraham Rivera MHSE MHSE [id number] 2017-11-21 09:59:00 2017-11-21 09:59:00 Outpatient Eliu Tucker MD [place] [id number] Elmer Tucker MD 2017-11-08 11:00:00 2017-11-08 11:00:00 Outpatient Abraham Rivera MHHOIP MHHOIP [id number] 2017-03-29 09:30:00 2017-03-29 09:30:00 Outpatient Eliu Tucker MD [place] [id number] Elmer Tucker MD 2016-10-11 09:43:00 2016-10-11 23:59:00 Outpatient Abraham Rivera MHHOIP MHHOIP [id number] 2016-09-22 09:31:00 2016-09-22 23:59:00 Outpatient Abraham Rivera MHSE MHSE [id number] 2015-10-29 13:32:00 2015-10-30 14:05:00 Outpatient Joni Montes MHSE MHSE [id number] 2015-10-07 09:51:00 2015-10-07 23:59:00 Outpatient Abraham RiveraSE SE [id number] 2015-09-08 09:05:00 2015-09-08 23:59:00 Outpatient Abraham RiveraSE SE [id number] 2014-12-01 14:38:00 2014-12-01 23:59:00 Outpatient Abraham Rivera [place] [id number] 2014-09-05 09:42:00 2014-09-05 23:59:00 Outpatient RiveraAbraham [place] [id number] Results Test Description Test Time Test Comments Results Result Comments Source KNEE 3VW RT - HOPD 2020-01-09 16:36:00 [place] [address] Patient Name: PALLAVI PUCKETT MR #: [id number] : 1945 Age/Sex: 74/F Req #: [id number] Adm Physician: Ordered by: KIRK ELDER MD Report #: [id number] Location: [facility] Room/Bed: Procedure: [id number] HOPD/KNEE 3VW RT - HOPD Exam Date: 01/09/20 Exam Time: 1619 REPORT STATUS: Signed Left knee, 3 views INDICATION: pain [id number] Comparison: None available. Discussion: Multiple views of the right knee are negative for an acute displaced fracture or dislocation. Small suprapatellar joint effusion is noted. A flabella is noted posteriorly. Mild narrowing of the medial compartment and moderate narrowing of the patellofemoral compartment is noted. Enthesophyte is noted at the insertion of the quadriceps tendon. IMPRESSION: 1. Negative for acute displaced fracture or dislocation. 2. Suprapatellar joint effusion is noted. Findings could relate to soft tissue or ligamentous injury. 3. Moderate degenerative changes of the right knee. Signed by: Wes Rodas MD on 01/09/2020 4:38 PM Dictated By: WES RODAS MD [id number] Transcribed By: EMILIANO on 01/09/20 1638 COPY TO: KIRK ELDER MD URINE AND STOOL 2015-10-30 13:02:43 Negative (10/30/15 8:02 AM) [facility] [place] CHEM PANEL 2015-10-30 04:34:00 1.8 [facility] [place] CHEM PANEL 2015-10-30 00:50:00 2.1 [facility] [place] VIRAL - SEROLOGY 2015-10-29 19:19:00 Negative (10/29/15 2:1 9 PM) [facility] VIRAL - SEROLOGY 2015-10-29 19:19:00 Negative (10/29/15 2:1 9 PM) [facility] [place] CARDIAC ENZYMES 2015-10-29 19:11:00 <0.02 [facility] CARDIAC ENZYMES 2015-10-29 19:11:00 63 [facility] CARDIAC ENZYMES 2015-10-29 19:11:00 <0.5 [facility] [place] CARDIAC ENZYMES 2015-10-29 19:11:00 <0.8 [facility] [place] CHEM PANEL 2015-10-29 19:11:00 0.07 [facility] CHEM PANEL 2015-10-29 19:11:00 2.4 [facility] CHEM PANEL 2015-10-29 19:11:00 48 [facility] CHEM PANEL 2015-10-29 19:11:00 24 [facility] [place] CHEM PANEL 2015-10-29 19:11:00 7.9 [facility] CHEM PANEL 2015-10-29 19:11:00 104 [facility] [place] CHEM PANEL 2015-10-29 19:11:00 3.4 [facility] [place] CHEM PANEL 2015-10-29 19:11:00 24 [facility] [place] CHEM PANEL 2015-10-29 19:11:00 137 [facility] CHEM PANEL 2015-10-29 19:11:00 1.[address] [facility] CHEM PANEL 2015-10-29 19:11:[facility] [place] CHEM PANEL 2015-10-29 19:11:00 104 [facility] Roberto CHEM PANEL 2015-10-29 19:11:00 0.6 [facility] [place] CHEM PANEL 2015-10-29 19:11:00 57 [facility] CHEM PANEL 2015-10-29 19:11:00 17 [facility] [place] CHEM PANEL 2015-10-29 19:11:00 3.9 [facility] [place] [facility] PANEL 2015-10-29 19:11:00 11 [facility] CHEM PANEL 2015-10-29 19:11:00 12.4 [facility] [place] CHEM PANEL 2015-10-29 19:11:00 4.0 [facility] CHEM PANEL 2015-10-29 19:11:00 21 [facility] [place] CHEM PANEL 2015-10-29 19:11:00 1.0 [facility] [place] HEMATOLOGY 2015-10-29 19:11:00 Test Item PTT (test code = PTT) 29.1 s 22.9-35.8 [facility] [id number] 19:11[facility] 2015-10-29 19:11:00* Test Item Value Reference Range Interpretation Comments PT (test code = PT) 14.1 s 12.0-14.7 [facility] [id number] 19:11:35950Feakthbu HermannHEMATOLOGY 2015-10-29 19:11:009.0[facility] OroonxdXMHDSNJXWJ9613-23-49 19:11:0083.4[facility] WqqethgHBEOWKYFME7549-26-15 19:11:0034.6[facility] CyhkxwsTTZJNWKZGI4805-28-43 19:11:0013.3[facility] WrkekqbSOILKBQMGL6005-70-19 19:11:00* Test Item Value Reference Range Interpretation Comments MCH (test code = MCH) 28.9 pg 27.0-31.0 [facility] [id number] 19:11:0037.5[facility]ann[facility]Y 2015-10-29 19:11:0013.0[facility] [id number] 19:11:004.50[facility] [id number] 19:11:0010.9[facility] WgdkujfBAJBATMNSE6581-01-13 19:11:000.5[facility] TltpokkULLIDLURCX8795-62-21 19:11:001.0[facility] GVBWSXVBXZ9081-13-49 19:11:009.4[facility] CtitxohKFJZGJYPQB3251-06-84 19:11:000.4 [facility] BfgwybaCABFAQAMMC6014-92-40 19:11:000.2[facility]ann[facility]Y 2015-10-29 19:11:004.5[facility] [id number] 19:11:009.0[facility] DjzoprnTWFKJDTXGT7898-04-38 19:11:0085.9[facility] [facility] 2015-10-29 19:11:00Trace *ABN*(10/29/15 2:11 PM)[facility] 2015-10[facility] 19:11:002[facility] [id number] 19:11:001[facility] [id number] 19:11:00Negative *NA*(10/29/15 2:11 PM)[facility] [id number] 19:11:00Negative (10/29/15 2:11 PM)[facility] [id number] 19:11:00Negative (10/29/15 2:11 PM)[facility] [id number] 19:11:005.0[facility] 2015-10-29 19:11:00Clear (10/29/15 2:11 PM)[facility] 2015-10-29 19:11:001.017[facility]
--- NOTE | 2020-01-09 17:10 | Emergency Department Note ---
History of Present Illnes History of Present Illness Chief Complaint: Extremity Trauma/Pain History of Present Illness This is a 74 year old female Chief Complaint Comment right knee pain for one week without injury. pt limping to room, refused wc . Historian: Patient Arrival Mode: Car Onset (how long ago): day(s) (2) Location: pain Quality: right knee Radiation: Denies non-radiation, Denies back, Denies neck, Denies extremity, Denies abdomen, Denies periumbilical, Denies flank, Denies proximal, Denies distal, Denies other Severity: moderate Onset quality: gradual Duration (how long): day(s) (2) Timing of current episode: constant Progression: waxing and waning Chronicity: new Context: Denies recent illness, Denies recent surgery, Denies recent immobilization, Denies recent travel, Denies trauma/injury, Denies new medications, Denies hx of DVT/PE, Denies non-compliance w/ medications, Denies other Relieving factors: none Exacerbating factors: none Associated symptoms: Denies denies other symptoms, Denies confusion, Denies chest pain, Denies cough, Denies diaphoresis, Denies fever/chills, Denies headaches, Denies loss of appetite, Denies malaise, Denies nausea/vomiting, Denies rash, Denies seizure, Denies shortness of breath, Denies syncope, Denies weakness, Denies other Past Medical/Family History Physician Review I have reviewed the patient's past medical and family history. Any updates have been documented here. Past Medical History Recent Fever: No Clinical Suspicion of Infectio: No New/Unexplained Change in Ment: No Past Medical History: Hypertension, Diabetes Past Surgical History: None Social History Smoking Cessation: Never Smoker Counseling Performed: No Alcohol Use: None Any Illegal Drug Use: No Physically hurt or threatened: No Other Any Pre-Existing Lines (PICC,: No Review of Systems Review of Systems Constitutional: Reports no symptoms EENTM: Reports no symptoms Cardiovascular: Reports no symptoms Respiratory: Reports no symptoms Gastrointestinal: Reports no symptoms Genitourinary: Reports no symptoms Musculoskeletal: Reports as per HPI Integumentary: Reports no symptoms Neurological: Reports no symptoms Psychological: Reports no symptoms Endocrine: Reports no symptoms Hematological/Lymphatic: Reports no symptoms Physical Exam Related Data Allergies: Coded Allergies: No Known Allergies (Unverified , 07/13/10) Triage Vital Signs Vital Signs Date Time Temp Pulse Resp B/P (MAP) Pulse Ox O2 Delivery O2 Flow Rate FiO2 01/09/20 15:55 98.9 93 18 143/61 98 Room Air Vital signs reviewed: Yes Physical Exam CONSTITUTIONAL Constitutional: Present well-developed, Present well-nourished HENT HENT: Present normocephalic, Present atraumatic, Present oropharynx cl ear/moist, Present nose normal HENT L/R: Present left ext ear normal, Present right ext ear normal EYES Eyes: Reports PERRL, Reports conjunctivae normal NECK Neck: Present ROM normal PULMONARY Pulmonary: Present effort normal, Present breath sounds normal CARDIOVASCULAR Cardiovascular: Present regular rhythm, Present heart sounds normal, Present capillary refill normal, Present normal rate GASTROINTESTINAL Abdominal: Present soft, Present nontender, Present bowel sounds normal GENITOURINARY Genitourinary: Present exam deferred SKIN Skin: Present warm, Present dry MUSCULOSKELETAL Musculoskeletal: Present tenderness, Present swelling NEUROLOGICAL Neurological: Present alert, Present oriented x 3, Present no gross motor or sensory deficits PSYCHOLOGICAL Psychological: Present mood/affect normal, Present judgement normal Results Imaging Imaging results reviewed: Yes Assessment & Plan Medical Decision Making MDM miniscus ligament injuiry Reassessment Reassessment time: 16:55 Reassessment better Assessment & Plan Final Impression: (1) Knee pain (2) Knee effusion Depart Disposition: HOME, SELF-CARE Last Vital Signs Date Time Temp Pulse Resp B/P (MAP) Pulse Ox O2 Delivery O2 Flow Rate FiO2 01/09/20 15:55 98.9 93 18 143/61 98 Room Air Home Meds Reported Medications [Oscal] No Conflict Check, 700 MG PO BID 11/14/16 Omeprazole (OMEPRAZOLE) 40 Mg Capsule.dr, 20 MG PO DAILY 11/14/16 Aspirin (ASPIRIN) 325 Mg Tablet, 325 MG PO DAILY, #30 TAB 11/14/16 Niacin (NIACIN) 500 Mg Tabsr, 1000 MG PO DAILY, #30 TAB 11/14/16 Atorvastatin Calcium (ATORVASTATIN CALCIUM) 20 Mg Tablet, 20 MG PO HS, #30 TAB 11/14/16 Amlodipine Besylate (AMLODIPINE BESYLATE) 10 Mg Tablet, 10 MG PO DAILY, #30 TAB 11/14/16 Hydrochlorothiazide (HYDROCHLOROTHIAZIDE) 25 Mg Tablet, 12.5 MG PO DAILY, #30 TAB 11/14/16 Losartan Potassium (LOSARTAN POTASSIUM) 100 Mg Tablet, 100 MG PO DAILY, TAB 11/14/16 Glipizide (GLIPIZIDE) 5 Mg Tablet, 10 MG PO DAILY, TAB 11/14/16 Metformin Hcl (METFORMIN HCL) 500 Mg Tablet, 1000 MG PO BID, #60 TAB 11/14/16 KIRK ELDER MD Jan 09, 2020 17:10
[2020-01-09] MEDS ORDERED: NAPROSYN500 MG PO (17:11)
== END 2020-01-09 17:28 | disposition home or self-care (01) ==
LOC: FSED 16:10
DX: M25.561 Pain in right knee (principal); M25.461 Effusion, right knee; I10 Essential (primary) hypertension; E11.9 Type 2 diabetes mellitus without complications
CPT/HCPCS: 99283

== ENCOUNTER 2022-01-25 13:08 | Emergency (ER) | payer MEDICARE, OTHER ==
[~2022-01-25] VITALS: Ht 154.9 cm; Wt 60.8 kg
[~2022-01-25 13:08] MED LIST changes: +NAPROSYN500 MG PO
[2022-01-25] MEDS ORDERED: KETOROLAC TROMETHAMINE 30 MG/ML VIAL IM STA (14:39)
[2022-01-25] MEDS ORDERED: NAPROSYN500 MG PO (14:55)
[2022-01-25] MEDS ORDERED: KETOROLAC TROMETHAMINE 30 MG/ML VIAL ONE (14:58)
== END 2022-01-25 15:00 | disposition home or self-care (01) ==
LOC: FSED 13:12
DX: M25.562 Pain in left knee (principal); M79.662 Pain in left lower leg; I10 Essential (primary) hypertension; E11.9 Type 2 diabetes mellitus without complications; M81.8 Other osteoporosis without current pathological fracture
CPT/HCPCS: 99282; J1885